=== PATIENT | female | born 1995 | race Caucasian/White ===

== ENCOUNTER 2017-11-12 21:44 | Emergency (ER) | payer OTHER ==
[2017-11-12 21:51] VITALS: BP 102/59; PULSE 69; RESP 16; TEMP 97.5; O2SAT 96
--- NOTE | 2017-11-12 22:03 | EDPHY ---
H & P HPI/ROS: Chief complaint: Right pointer finger laceration History of present illness: This is a 22-year-old female, up-to-date on immunizations, who presents for a laceration to her right pointer finger. She was washing a knife when it slipped cutting her right pointer finger. Minimal pain. Minimal bleeding. She is still moving it well. No report of abnormal coolness or paresthesias. Smoking Status: Never smoked Physical Exam: General: Alert, nontoxic Skin: 1 cm laceration to the right pointer finger. No foreign body or deep structure involvement appreciated. Musculoskeletal: Patient is flexing extending the finger in the DIP, PIP and MCP joint well. Vascular: Capillary refill brisk in the right pointer finger. Neurologic: Sensation intact using light touch and two-point discrimination. Constitutional: Initial Vital Signs Temperature (C) 36.4 C 11/12/17 21:46 Heart Rate 69 11/12/17 21:46 Respiratory Rate 16 11/12/17 21:46 Blood Pressure 102/59 L 11/12/17 21:46 O2 Sat (%) 96 11/12/17 21:46 O2 Delivery Mode Room Air Allergies/Adverse Reactions: No Known Allergies Allergy (Unverified 11/12/17 21:51) Home Medications: Medication Instructions Recorded Vyvanse 11/12/17 Wellbutrin Xl 11/12/17 Zoloft 25mg (*) 11/12/17 MDM/Departure - MDM Procedures: Procedure: Laceration repair. Verbal consent was obtained from the patient. The 1 cm laceration on the right pointer finger was anesthetized in the usual fashion. The wound was irrigated, draped and explored to its base with a gloved finger. There were no deep structures involved. No tendon injury was identified. The wound was repaired with 5 0 Prolene. The wound repair was simple. The procedure was performed by myself. ED Course/Re-evaluation: Patient seen under the supervision of my secondary supervising physician Dr. Doroteo Hernandez. Patient presents for a right pointer finger laceration. The finger is neurovascularly intact. Good musculoskeletal control. It is repaired and dressed. Home care is discussed. She is to follow up with a primary care doctor or hand doctor for recheck. Return precautions are given. Differential Diagnosis: Included but not limited to laceration, deep structure involvement, foreign body contamination - Depart Disposition: Home, Routine, Self-Care Clinical Impression: Finger laceration Qualifiers: Encounter type: initial encounter Finger: index finger Damage to nail status: without damage Foreign body presence: without foreign body Laterality: right Qualified Code(s): S61.210A - Laceration without foreign body of right index finger without damage to nail, initial encounter Condition: Good Instructions: Care For Your Stitches (ED), Finger Laceration (ED), Acute Wounds (ED) Additional Instructions: Follow-up with student health or a hand doctor for recheck Stitches to be removed in 7 days If symptoms worsen or new symptoms develop return to the emergency room for recheck Referrals: NONE *PRIMARY CARE P,. [Primary Care Provider] - As per Instructions [facility] [Clinic] - As per Instructions Immanuel Taylor MD [Medical Doctor] - As per Instructions
== END 2017-11-12 22:33 | disposition home or self-care (01) ==
PROC: 0HQFXZZ Repair Right Hand Skin, External Approach (ICD-10-PCS; principal; 2017-11-12)
DX: S61.210A Laceration without foreign body of right index finger without damage to nail, initial encounter (principal); W26.0XXA Contact with knife, initial encounter

== ENCOUNTER 2018-06-18 16:40 | Emergency (ER) | payer BC, OTHER ==
--- NOTE | 2018-06-18 17:57 | EDPHY ---
H & P Time Seen by Provider: 06/18/18 17:30 HPI/ROS: CHIEF COMPLAINT: Right wrist injury HISTORY OF PRESENT ILLNESS: 22-year-old female presents emergency department with concerns about possible fracture in her right wrist. The patient fell out of a [place] injuring the medial aspect of her right forearm. The incident happened over 1 week ago but she feels like pain and swelling is getting worse over last 1 week and is requesting x-rays. She is right-hand dominant. She is having difficulty writing because of the pain. ROS: Denies pain in her right hand or right elbow or right shoulder. Denies numbness or tingling in her fingers. Past Medical/Surgical History: Orthopedic injuries Social History: [employer] student Smoking Status: Never smoked Physical Exam: On examination patient has some ecchymosis and swelling noted to the distal right forearm and wrist area especially on the ulnar aspect. Nontender to palpate in the anatomic snuffbox. No pain with placing axial load on the right thumb. Full range of motion of her fingers. Full flexion extension of the wrist as well as radial ulnar deviation. Full supination and pronation without any difficulty. She does have reproducible pain with palpation over the distal right ulna. Full range of motion of the right elbow. No abrasions or puncture wounds. No cellulitis or signs of infection. Constitutional: Initial Vital Signs Temperature (C) 37.5 C 06/18/18 17:07 Heart Rate 79 06/18/18 17:07 Respiratory Rate 16 06/18/18 17:07 Blood Pressure 135/77 H 06/18/18 17:07 O2 Sat (%) 99 06/18/18 17:07 O2 Delivery Mode Room Air Allergies/Adverse Reactions: No Known Allergies Allergy (Unverified 06/18/18 17:07) Home Medications: Medication Instructions Recorded Vyvanse 11/12/17 Zoloft 25mg (*) 11/12/17 MDM/Departure - MDM Imaging Results: Imaging Impressions Wrist X-Ray 06/18/18 17:10 Impression: No acute osseous findings. Imaging: I viewed and interpreted images myself Procedures: Patient was placed in a splint for comfort and support examined post application in good placement with normal HOSPICE LIAISON. ED Course/Re-evaluation: 22-year-old female presents to the emergency department with right wrist injury. X-rays reveal no fractures. She was placed in a splint and given orthopedic referral. I doubt scaphoid injury. - Depart Disposition: Home, Routine, Self-Care Clinical Impression: Contusion of right wrist Qualifiers: Encounter type: initial encounter Qualified Code(s): S60.211A - Contusion of right wrist, initial encounter Condition: Good Instructions: Contusion in Adults (ED) Additional Instructions: Splint for comfort and support. Ibuprofen 400mg every 8 hours for pain as directed. Referrals: Jake Andrews MD [Medical Doctor] - 5-7 days, call for appt. (orthopedic surgeon cardiopulmonary physical therapist)
[2018-06-18 18:14] VITALS: BP 138/88
== END 2018-06-18 18:12 | disposition home or self-care (01) ==
DX: S60.211A Contusion of right wrist, initial encounter (principal); Y93.89 Activity, other specified
CPT/HCPCS: L3984

== ENCOUNTER 2018-12-26 17:32 | Emergency (ER) | payer BC ==
--- NOTE | 2018-12-26 17:39 | EDPHY ---
H & P Time Seen by Provider: 12/26/18 17:36 HPI/ROS: CHIEF COMPLAINT: Alcohol use HISTORY OF PRESENT ILLNESS: The patient is a 23-year-old female presents emergency department via EMS. The patient was found lying in an alley. Per her friend she was drinking significant alcohol this afternoon. Patient reports drinking alcohol but denies using any drugs. Patient has no complaint of fall. She denies headache, neck or back pain. No chest pain, shortness of breath. No abdominal pain. REVIEW OF SYSTEMS: 10 systems were reveiwed and are negative with the exception of the elements mentioned in the history of present illness. Past Medical/Surgical History: Denies Past surgical history: Noncontributory Smoking Status: Never smoked Physical Exam: Vitals noted GENERAL: Intoxicated appearing, in no acute distress, alert. C-collar in place HEAD: No evidence of trauma. EYES: PERRLA, EOMI, normal to inspection. ENT: Airway intact, no dental or oral injury, no malocclusion, no hemotympanum , normal external examination. NECK: The trachea is midline. There is no crepitus. The C-spine is nontender. RESPIRATORY: [Clear to auscultation bilaterally, no rales, rhonchi or wheezing. Chest wall: Normal to appearance. No crepitance or deformity. CVS: Regular rate and rhythm, no rubs, murmurs, or gallops. ABDOMEN: Soft, nontender, nondistended, no bruising or abrasions. Pelvis: Stable. No tenderness palpation. BACK: Patient has abrasion across her lumbar spine, no spinal tenderness, no spinal step off, no notable bruising. SKIN: Normal color, warm, dry. No pallor or diaphoresis. EXTREMITIES: Right upper extremity: Atraumatic. No visible signs of trauma. No tenderness palpation. Neurovascular intact distally. Left upper extremity: Abrasion on her left elbow. No tenderness palpation. Neurovascular intact distally. Right lower extremity: Atraumatic. No visible signs of trauma. No tenderness palpation. Neurovascular intact distally. Left lower extremity: Abrasion on her left knee. No tenderness palpation. Neurovascular intact distally. NEURO/PSYCH: Alert and oriented x 3, GCS 15, intoxicated appearing, normal motor sensory exam. Constitutional: Initial Vital Signs Temperature (C) 35.9 C L 03/17/19 17:34 Heart Rate 90 12/26/18 17:34 Respiratory Rate 18 12/26/18 17:34 Blood Pressure 117/79 12/26/18 17:34 O2 Sat (%) 94 12/26/18 17:34 O2 Delivery Mode Room Air Allergies/Adverse Reactions: No Known Allergies Allergy (Unverified 06/18/18 17:07) Home Medications: Medication Instructions Recorded Noreenradhaalem 11/12/17 Zoloft 25mg (*) 11/12/17 Medical Decision Making ED Course/Re-evaluation: In the emergency department I met EMS on arrival. I took report. Patient has a normal glucose. Patient reports drinking alcohol. She has no other complaints. She asked if we have her dog in the ambulance. I informed that there was no dog in the emergency department. 1834: The patient is lying in bed. No distress. She answers my questions appropriately. She is still intoxicated appearing. No new complaints. 1924: Patient is intoxicated appearing. No new complaints. 2009: Patient requests discharge. She pulled out her IV. Patient was able to ambulate to the bathroom. Police were notified Differential Diagnosis: Differential includes but is not limited to alcohol intoxication, drug abuse, closed-head injury, subarachnoid hemorrhage, subdural hematoma, spinal injury Departure - Departure Disposition: Home, Routine, Self-Care Clinical Impression: Alcoholic intoxication Qualifiers: Complication of substance-induced condition: uncomplicated Qualified Code(s): F10.920 - Alcohol use, unspecified with intoxication, uncomplicated Condition: Good Instructions: Alcohol Intoxication (ED) Additional Instructions: Return with increasing headache, neck pain, shortness of breath, abdominal pain or any other concerns. Referrals: [facility],. [Clinic] - 3-4 days, if not improved
[2018-12-26 20:36] VITALS: BP 109/76
== END 2018-12-26 20:33 | disposition home or self-care (01) ==
LOC: EDUNIT#
DX: F10.920 Alcohol use, unspecified with intoxication, uncomplicated (principal); S50.312A Abrasion of left elbow, initial encounter; S80.212A Abrasion, left knee, initial encounter; S30.810A Abrasion of lower back and pelvis, initial encounter; W10.8XXA Fall (on) (from) other stairs and steps, initial encounter; Y92.488 Other paved roadways as the place of occurrence of the external cause; Y99.9 Unspecified external cause status